=== PATIENT | male | born 1970 | race Two or more races ===

== ENCOUNTER 2018-05-28 19:11 | Emergency (ER) | payer OTHER ==
[~2018-05-28] VITALS: Ht 190.5 cm; Wt 132.0 kg
[2018-05-28] MEDS ORDERED: LORAZEPAM INJ 2 MG/ML VIAL ONE (19:36)
--- NOTE | 2018-05-28 19:42 | NUR ---
PT [id number], FOUND ON THE STREET WITH SUSPECTED OD. PUPILS 2MM BILATERALLY, ACTING BIZARRE AND AGITATED, PUSHING TONGUE OUT REPEATEDLY WHICH LOOKS LIKE A DYSTONIC REACTION. ONLY ABLE TO ANSWER YES OR NO QUESTIONS. A/OX1 ONLY UPON ASSESSMENT. RESP EVEN UNLABORED, NOTED HYPERTENSIVE, TACHYCARDIC ON MONITOR. IN ER BED 06 ON 4POINT RESTRAINTS PER MD VERBAL ORDER.
[2018-05-28 19:45] LABS: BASOPHILS # (AUTO) 0.1 /CMM (0.0-0.2); BASOPHILS % (AUTO) 0.9 % (0.0-2.0); EOSINOPHILS % (AUTO) 1.5 % (0.0-6.0); HEMATOCRIT 51 % (39-51); HEMOGLOBIN 16.7 g/dL (13.5-17.5); LYMPHOCYTES % (AUTO) 18.8 % (20.0-44.0); MEAN CORPUSCULAR HGB CONC 33 g/dl (31.0-36.0); MEAN CORPUSCULAR VOLUME 93 fL (80-96); MONOCYTES % (AUTO) 9.6 % (2.0-12.0); NEUTROPHILS # (AUTO) 7.2 /CMM (1.8-8.9); NEUTROPHILS % (AUTO) 69.2 % (43.0-81.0); PLATELET COUNT (AUTO) 154 /CMM (150-450); RED BLOOD CELL COUNT(AUTO) 5.46 MIL/uL (4.5-6.0); WHITE BLOOD COUNT (AUTO) 10.5 K/uL (4.3-11.0)
[2018-05-28 19:52] LABS: CALCIUM, SERUM 9.2 mg/dL (8.5-10.1); CARBON DIOXIDE 28 mmol/L (21-32); CHLORIDE 109 mmol/L (98-107); CREATININE 1.6 mg/dL (0.6-1.3); GLUCOSE 89 mg/dL (74-106); POTASSIUM 3.6 mmol/L (3.5-5.1); SODIUM SERUM 145 mmol/L (136-145); UREA NITROGEN, BLOOD 17 mg/dL (7-18)
[2018-05-28 19:57] LABS: ALANINE AMINOTRANSFERASE 36 U/L (12-78); ALBUMIN 3.9 g/dL (3.4-5.0); ALCOHOL, BLOOD < 3 mg/dL (0-0); ALKALINE PHOSPHATASE 100 U/L (46-116); ASPARTATE AMINOTRANSFERASE 37 U/L (15-37); BILIRUBIN,DIRECT 0.1 mg/dL (0.0-0.2); BILIRUBIN,TOTAL 0.4 mg/dL (0.2-1.0); SALICYLATE 6.1 mg/dL (2.8-20.0); TOTAL PROTEIN, SERUM 8.3 g/dL (6.4-8.2)
[2018-05-28 19:58] LABS: ACETAMINOPHEN < 2 ug/ml (10-30)
[2018-05-28] MEDS ORDERED: LORAZEPAM INJ 2 MG/ML VIAL IV ONE (20:00)
--- NOTE | 2018-05-28 20:15 | NUR ---
NO FURTHER ORAL/TONGUE SYMPTOMS NOTED. RESTING IN BED ON MONITOR.
--- NOTE | 2018-05-28 21:00 | NUR ---
PER DR ALLEN, NO INDICATION FOR IN AND OUT CATH FOR URINE SAMPLE. WILL COLLECT AND SEND URINE WHEN PT CAN PRODUCE VIA CLEAN CATCH.
--- NOTE | 2018-05-28 21:50 | NUR ---
NOTIFIED DR ALLEN OF RESUMED SYMPTOMS THAT APPEAR LIKE TARDIVE DYSKINESIA, INCLUDING STICKING TONGUE OUT, THRUSTING OUT BOTTOM JAW, OPENING AND CLOSING MOUTH REPEATEDLY. RECEIVED VERBAL ORDER FOR COGENTIN 1MG IVP.
[2018-05-28] MEDS ORDERED: BENZTROPINE MESYLATE (2MG/2ML) 2 MG/2 ML AMPUL IVP ONE (22:00)
[2018-05-28] MEDS ORDERED: BENZTROPINE MESYLATE (2MG/2ML) 2 MG/2 ML AMPUL ONE (22:01)
--- NOTE | 2018-05-28 22:44 | NUR ---
PT ASLEEP, EASILY AROUSABLE, SNORING. NOTED O2 SAT DROPPING TO LOW 90'S. PLACED ON 2L VIA NC AND HOB ELEVATED.
--- NOTE | 2018-05-28 23:41 | NUR ---
asleep, easily arousable. remains on tele.
--- NOTE | 2018-05-29 02:00 | NUR ---
ASLEEP, EASILY AROUSABLE, NAD NOTED, REMAINS ON MONITOR.
--- NOTE | 2018-05-29 04:10 | NUR ---
PT NOW A/OX4, EASILY AROUSABLE, CALM AND COOPERATIVE. NOTIFIED DR CHAVARRIA OF PT STATUS.
--- NOTE | 2018-05-29 05:03 | NUR ---
IV removed. Catheter intact and site benign. Pressure and 4x4 applied to site. No bleeding noted. Patient discharged in stable condition. Written and verbal after care instructions given. Patient verbalizes understanding of instruction. Patient requests social work; pt will wait for social studies department chair in waiting room until AM when social studies department chair arrives. Provided with food and drinks.
[2018-05-29 05:05] VITALS: BP 161/95
== END 2018-05-29 05:05 | disposition home or self-care (01) ==
LOC: ER 19:18
DX: F19.129 Other psychoactive substance abuse with intoxication, unspecified (principal)
CPT/HCPCS: 36415; 80048-TC; 80076-TC; 85025-TC; G0480; J0515; J2060